=== PATIENT | male | born 1935 | race Caucasian/White ===

== ENCOUNTER 2018-03-16 09:19 | Emergency (ER) | payer OTHER, BC ==
[2018-03-16] MEDS ORDERED: FENTANYL CITR 100 MCG/2 ML ONE (09:55)
[2018-03-16] MEDS ORDERED: ONDANSETRON 4 MG/2 ML VIAL ONE (09:55)
[2018-03-16 10:11] LABS: Absolute Monocytes 3.3 K/uL (0.1-1.3); Absolute Neutrophil 7.8 K/uL (1.8-8.0); Basophils % 0.1 % (0-1.3); Eosinophils % 1.7 % (0-4.4); Lymphocytes % 8.3 % (15.3-44.8); RBC Red Blood Cell Count 5.28 M/uL (4.33-5.43)
[2018-03-16 10:17] LABS: Protime INR 2.42
[2018-03-16 10:27] LABS: Urine Amorphous Sediment 2+ /HPF (NONE SEEN); Urine Bacteria <20 /HPF (NONE SEEN); Urine Culture Reflex Order NOT NEEDED; Urine RBC <5 /HPF (NONE SEEN)
[2018-03-16 10:31] LABS: Albumin 3.9 g/dL (3.4-5.0); Bilirubin Direct 0.3 mg/dL (0-0.2); Bilirubin Total 0.8 mg/dL (0.2-1.0); Potassium 4.4 mmol/L (3.5-5.1); Protein, Total 7.6 g/dL (6.4-8.2)
[2018-03-16 10:49] LABS: Blood Morphology Comment NOT SEEN (NOT SEEN); Platelet Estimate DECR; Platelets, Giant FEW; Urine White Blood Cell Casts OK
--- NOTE | 2018-03-16 11:47 | RAD REPORT ---
EXAM DESCRIPTION: CTAbdomen Pelvis W Contrast - 03/16/2018 11:24 am CLINICAL HISTORY: Abdominal pain. back pain COMPARISON: No comparisons TECHNIQUE: Biphasic CT imaging of the abdomen and pelvis was performed with 100 ml non-ionic IV cont rast. All CT scans are performed using dose optimization technique as appropriate and may include automated exposure control or mA/KV adjustment according to patient size. FINDINGS: Emphysematous changes are present in the lung bases. The liver demonstrates no focal mass or intrahepatic biliary dilatation. The spleen is within normal limits. The pancreas shows a few small punctate calcifications. Small caliceal stones are present in both kidneys without obstructive uropathy. 3.6 cm right renal cyst is present. Heavy aortic atheroscl erosis is noted. No bowel obstruction, free air, free fluid or abscess. Sigmoid diverticulosis coli without diverticul itis. The appendix is normal. No evidence of significant lymphadenopathy. Moderate lumbar degenerative and postsurgical changes present. IMPRESSION: Bilateral renal calculi are present without hydronephrosis. Evidence of mild chronic pancreatitis. Prominent degenerative and postsurgical changes of the lumbar spine.
[2018-03-16 12:35] LABS: Urine Blood NEGATIVE (NEG); Urine Glucose NEGATIVE (NEG); Urine Protein TRACE (NEG); Urine pH 7.5 (5.0-7.0)
[2018-03-16] MEDS ORDERED: DIAZEPAM 10 MG/2 ML INJ SYRINGE ONE (12:58)
[2018-03-16] MEDS ORDERED: KETOROLAC 30 MG/ML INJ ONE (13:00)
--- NOTE | 2018-03-16 13:00 | ER ---
Nurse's Notes [facility] Name: Guzman Cooper Age: 82 yrs Sex: Male : 1935 Arrival Date: 03/16/2018 Time: 09:21 Bed 6 Private MD: Diagnosis: Low back pain-chronic Presentation: 03/16 09:21 Presenting complaint: EMS states: hx of chronic back problem, recently the pain is hj unbearable /10 with pain coming from the lumbar area down to the coccyx area; even slight movement pain is at its worse;. Transition of care: patient was not received from another setting of care. Onset of symptoms was March 16, 2018. Risk Assessment: Do you want to hurt yourself or someone else? Patient reports no desire to harm self or others. Initial Sepsis Screen: Does the patient meet any 2 criteria? No. Patient's initial sepsis screen is negative. Does the patient have a suspected source of infection? No. Patient's initial sepsis screen is negative. Care prior to arrival: BP- 163/82; HR- 60, with pacemaker;. 09:21 Method Of Arrival: EMS: [facility] 09:21 Acuity: ABRAN 4 hj Triage Assessment: 09:29 General: Appears in no apparent distress. uncomfortable, Behavior is calm, cooperative, hj appropriate for age. Pain: Complains of pain in sacrum, left low back and right low back Pain currently is 10 out of 10 on a pain scale. Musculoskeletal: Capillary refill < 3 seconds. Historical: - Allergies: 09:28 Codeine; hj 09:28 Sulfa (Sulfonamide Antibiotics); hj - Home Meds: 09:28 Toprol XL 150 mg Oral Tb24 1 tab once daily [Active]; Lotrel 5-40 mg Oral cap 1 cap hj once daily [Active]; Coumadin 3 mg Oral tab 1 tab once daily [Active]; Tricor 145 mg Oral tab 1 tab once daily [Active]; Januvia 100 mg oral tab 1 tab once daily [Active]; Xanax 0.25 mg Oral tab 1 tab 3 times per day [Active]; Flomax 0.4 mg Oral cp24 1 cap once daily [Active]; Synthroid 50 mcg Oral tab 1 tab once daily [Active]; Prozac 40 mg Oral cap 1 cap once daily [Active]; omeprazole 40 mg Oral cpDR 1 cap once daily [Active]; - PMHx: 09:28 Hyperlipidemia; Hypertension; Diabetes - NIDDM; Hypothyroidism; Atrial Fib; hj - PSHx: 09:28 pacemaker; hj - Immunization history:: Adult Immunizations up to date. - Social history:: Smoking status: Patient/guardian denies using tobacco, Patient/guardian denies using alcohol. - Ebola Screening: : Patient negative for fever greater than or equal to 101.5 degrees Fahrenheit, and additional compatible Ebola Virus Disease symptoms Patient denies exposure to infectious person Patient denies travel to an Ebola-affected area in the 21 days before illness onset. Screenin:29 Abuse screen: Denies threats or abuse. Denies injuries from another. Nutritional hj screening: No deficits noted. Tuberculosis screening: No symptoms or risk factors identified. Fall Risk Secondary diagnosis (15 points). Assessment: 09:48 Reassessment: see triage for assessment;. General:. hj 10:30 Reassessment: Patient and/or family updated on plan of care and expected duration. Pain hj level reassessed. Patient is alert, oriented x 3, equal unlabored respirations, skin warm/dry/pink. 11:30 Reassessment: Patient and/or family updated on plan of care and expected duration. Pain hj level reassessed. Patient is alert, oriented x 3, equal unlabored respirations, skin warm/dry/pink. 12:07 Reassessment: Patient and/or family updated on plan of care and expected duration. Pain hj level reassessed. Patient is alert, oriented x 3, equal unlabored respirations, skin warm/dry/pink. awaiting results and POC;. 12:44 Reassessment: Patient and/or family updated on plan of care and expected duration. Pain hj level reassessed. Patient is alert, oriented x 3, equal unlabored respirations, skin warm/dry/pink. provider in room for POC; daughter in room verifying info;. Vital Signs: 09:30 BP 151 / 84; Pulse 60; Resp 18; Temp 98.1(TE); Pulse Ox 96% on R/A; Weight 95.25 kg; hj Height 5 ft. 9 in. (175.26 cm); Pain 10/10; 10:30 BP 150 / 80; Pulse 60; Resp 18; Pulse Ox 97% on R/A; hj 11:30 BP 148 / 82; Pulse 60; Resp 18; Pulse Ox 98% on R/A; hj 12:08 BP 152 / 85; Pulse 59; Resp 18; Pulse Ox 97% on R/A; hj 13:24 BP 145 / 87; Pulse 60; Resp 18; Pulse Ox 99% on R/A; hj 09:30 Body Mass Index 31.01 (95.25 kg, 175.26 cm) hj ED Course: 09:21 Patient arrived in ED. hj 09:23 Triage completed. hj 09:28 Darin Tsai MD is Attending Physician. ps1 09:30 James Hartman PA is PHCP. cp 09:36 Cachorro Chen, JESSICA is Primary Nurse. hj 09:36 Arm band placed on right wrist. hj 09:36 Patient has correct armband on for positive identification. Bed in low position. Call hj light in reach. Side rails up X 1. Adult w/ patient. 10:07 Initial lab(s) drawn, by me, sent to lab. Inserted saline lock: 20 gauge in right jb1 antecubital area, using aseptic technique. Blood collected. 10:08 Bladder scan completed. 219 mls pre void. jb1 10:08 Bladder scan completed. 19mls post void. jb1 11:24 CT Abd/Pelvis - W/Contrast In Process Unspecified. EDMS 13:23 No provider procedures requiring assistance completed. IV discontinued, intact, hj bleeding controlled, No redness/swelling at site. Pressure dressing applied. Administered Medications: 09:45 Drug: fentaNYL (PF) 25 mcg Route: IVP; Site: right antecubital; hj 10:55 Follow up: Response: No adverse reaction; Pain is decreased hj 09:45 Drug: Zofran 4 mg Route: IVP; Site: right antecubital; hj 10:56 Follow up: Response: No adverse reaction hj 11:45 Drug: fentaNYL (PF) 25 mcg Route: IVP; Site: right antecubital; hj 12:10 Follow up: Response: No adverse reaction; Pain is decreased hj 12:46 Drug: Diazepam 2 mg Route: IVP; Site: right antecubital; hj 13:26 Follow up: Response: No adverse reaction hj 12:47 Drug: TORadol 30 mg Route: IVP; Site: right antecubital; hj 13:26 Follow up: Response: No adverse reaction; Pain is decreased almas Outcome: 12:59 Discharge ordered by . arlen 13:24 Discharged to home ambulatory, with family. hj 13:24 Condition: stable 13:24 Discharge instructions given to patient, family, Instructed on discharge instructions, follow up and referral plans. medication usage, Demonstrated understanding of instructions, follow-up care, medications, Prescriptions given X 2. 13:46 Patient left the ED. Signatures: Dispatcher [employer] EDDavid Adler jb1 Cachorro Chen RN RN James Peñaloza PA PA Darin Jones MD MD ps1
--- NOTE | 2018-03-16 13:00 | EDPHYS ---
Physician Documentation [facility] Name: Guzman Cooper Age: 82 yrs Sex: Male : 1935 Arrival Date: 03/16/2018 Time: 09:21 Bed 6 Private MD: ED Physician Darin Tsai HPI: 03/16 09:45 This 82 yrs old Male presents to ER via EMS with complaints of Back Pain. cp 09:45 The patient presents with pain that is chronic, with no known mechanism of injury. The cp symptoms are located in the low back. Onset: The symptoms/episode began/occurred chronically, became worse today. 09:45 The pain radiates to the right leg and left leg. Associated signs and symptoms: cp Pertinent negatives: abdominal pain, chest pain, constipation, dysuria, fever, hematuria, incontinence, numbness, urinary retention. Severity of symptoms: in the emergency department the symptoms are unchanged, despite home interventions. Historical: - Allergies: 09:28 Codeine; hj 09:28 Sulfa (Sulfonamide Antibiotics); hj - Home Meds: :28 Toprol XL 150 mg Oral Tb24 1 tab once daily [Active]; Lotrel 5-40 mg Oral cap 1 cap hj once daily [Active]; Coumadin 3 mg Oral tab 1 tab once daily [Active]; Tricor 145 mg Oral tab 1 tab once daily [Active]; Januvia 100 mg oral tab 1 tab once daily [Active]; Xanax 0.25 mg Oral tab 1 tab 3 times per day [Active]; Flomax 0.4 mg Oral cp24 1 cap once daily [Active]; Synthroid 50 mcg Oral tab 1 tab once daily [Active]; Prozac 40 mg Oral cap 1 cap once daily [Active]; omeprazole 40 mg Oral cpDR 1 cap once daily [Active]; - PMHx: :28 Hyperlipidemia; Hypertension; Diabetes - NIDDM; Hypothyroidism; Atrial Fib; hj - PSHx: 28 pacemaker; hj - Immunization history:: Adult Immunizations up to date. - Social history:: Smoking status: Patient/guardian denies using tobacco, Patient/guardian denies using alcohol. - Ebola Screening: : Patient negative for fever greater than or equal to 101.5 degrees Fahrenheit, and additional compatible Ebola Virus Disease symptoms Patient denies exposure to infectious person Patient denies travel to an Ebola-affected area in the 21 days before illness onset. ROS: 09:55 Constitutional: Negative for body aches, chills, fever, poor PO intake. cp 09:55 Eyes: Negative for injury, pain, redness, and discharge. cp 09:55 ENT: Negative for drainage from ear(s), ear pain, sore throat, difficulty swallowing, difficulty handling secretions. 09:55 Neck: Negative for pain with movement, pain at rest, stiffness, tenderness. 09:55 Cardiovascular: Negative for chest pain, edema, palpitations. 09:55 Respiratory: Negative for cough, shortness of breath, wheezing. 09:55 Abdomen/GI: Negative for abdominal pain, nausea, vomiting, and diarrhea, constipation, black/tarry stool, rectal bleeding, bowel incontinence. 09:55 Back: Positive for decreased range of motion, pain at rest, pain with movement, of the low back area and mid back area. 09:55 : Negative for urinary symptoms, difficulty urinating, bladder incontinence, testicular pain 09:55 MS/extremity: Negative for injury or acute deformity, decreased range of motion, paresthesias. 09:55 Skin: Negative for cellulitis, rash. 09:55 Neuro: Positive for weakness, of the right leg and left leg, Negative for altered mental status, headache, acute changes. 09:55 All other systems are negative. Exam: 10:05 Constitutional: The patient appears in no acute distress, alert, awake, cp non-diaphoretic, non-toxic, well developed, well nourished, uncomfortable. 10:05 Head/Face: Normocephalic, atraumatic. cp 10:05 Eyes: Periorbital structures: appear normal, Pupils: equal, round, and reactive to light and accomodation, Extraocular movements: intact throughout, Conjunctiva: normal, no exudate, no injection, Sclera: no appreciated abnormality, Lids and lashes: appear normal, bilaterally. 10:05 ENT: External ear(s): are unremarkable, Nose: is normal, Mouth: Lips: moist, Oral mucosa: pink and intact, moist, Posterior pharynx: is normal, airway is patent, no erythema, no exudate, Voice: is normal. 10:05 Neck: ROM/movement: is normal, is supple, without pain, no range of motions limitations, no meningismus, no nuchal rigidity. 10:05 Chest/axilla: Inspection: normal, Palpation: is normal, no crepitus, no tenderness. 10:05 Cardiovascular: Rate: normal, Rhythm: regular, Edema: mild lower legs, JVD: is not appreciated. 10:05 Respiratory: the patient does not display signs of respiratory distress, Respirations: normal, no use of accessory muscles, no retractions, no splinting, no tachypnea, labored breathing, is not present, Breath sounds: are clear throughout, no decreased breath sounds, no stridor, no wheezing. 10:05 Abdomen/GI: Inspection: abdomen appears normal, Bowel sounds: active, all quadrants, Palpation: abdomen is soft and non-tender, in all quadrants. 10:05 Back: pain, that is severe, of the low back area and mid back area, ROM is painful. 10:05 Musculoskeletal/extremity: Exam is negative for calf tenderness, decreased range of motion, deformity, injury. 10:05 Skin: cellulitis, is not appreciated, no rash present. 10:05 Neuro: Orientation: to person, place \T\ time. Mentation: is normal, Motor: moves all fours, negative for focal deficits, Sensation: is normal, Gait: needs assistance, uses a walker. Vital Signs: 09:30 BP 151 / 84; Pulse 60; Resp 18; Temp 98.1(TE); Pulse Ox 96% on R/A; Weight 95.25 kg; Height 5 ft. 9 in. (175.26 cm); Pain 10/10; 10:30 BP 150 / 80; Pulse 60; Resp 18; Pulse Ox 97% on R/A; hj 11:30 BP 148 / 82; Pulse 60; Resp 18; Pulse Ox 98% on R/A; 12:08 BP 152 / 85; Pulse 59; Resp 18; Pulse Ox 97% on R/A; 13:24 BP 145 / 87; Pulse 60; Resp 18; Pulse Ox 99% on R/A; 09:30 Body Mass Index 31.01 (95.25 kg, 175.26 cm) MDM: 09:32 Patient medically screened. cp 10:00 Differential diagnosis: Cholelithiasis chronic back pain, Osteomyelitis Pyelonephritis cp ruptured disc, Ureterolithiasis vertebral fracture. 12:57 Data reviewed: vital signs, nurses notes, lab test result(s), radiologic studies, CT cp scan. 12:57 Counseling: I had a detailed discussion with the patient and/or guardian regarding: the cp historical points, exam findings, and any diagnostic results supporting the discharge/admit diagnosis, lab results, radiology results, the need for outpatient follow up, for definitive care, a painting and coating worker, to return to the emergency department if symptoms worsen or persist or if there are any questions or concerns that arise at home. Response to treatment: the patient's symptoms have markedly improved after treatment, and as a result, I will discharge patient. 03/16 09:32 Order name: Basic Metabolic Panel cp 03/16 09:32 Order name: CBC with Diff; Complete Time: 11:50 cp 03/16 11:54 Interpretation: Normal except: WBC 12.4; PLT 94; RDW 17.4; MPV 12.0; LYM% 8.3; MN% cp 27.0; MNA 3.3. 03/16 09:32 Order name: Creatinine for Radiology; Complete Time: 10:42 cp 03/16 09:32 Order name: Hepatic Function; Complete Time: 10:42 cp 03/16 10:42 Interpretation: Normal except: BILID 0.3; GLOB 3.7. cp 03/16 09:32 Order name: Lipase; Complete Time: 10:42 cp 03/16 09:32 Order name: PT-INR; Complete Time: 10:42 cp 03/16 09:32 Order name: Ptt, Activated; Complete Time: 10:42 cp 03/16 09:32 Order name: Urine Microscopic Only; Complete Time: 10:42 cp 03/16 09:33 Order name: Basic Metabolic Panel; Complete Time: 10:42 EDMS 03/16 10:43 Interpretation: Normal except: NA 134; GLUC 120; BUN 21; GFR 68. cp 03/16 10:13 Order name: CBC Smear Scan; Complete Time: 11:50 EDMS 03/16 10:23 Order name: Urine Dipstick--Ancillary (enter results); Complete Time: 12:46 ag 03/16 10:44 Order name: CT Abd/Pelvis - W/Contrast; Complete Time: 11:50 cp 03/16 09:32 Order name: IV Saline Lock; Complete Time: 10:07 cp 03/16 09:32 Order name: Labs collected and sent; Complete Time: 10:07 03/16 09:32 Order name: Bladder Scanner: pre and post void; Complete Time: 10:07 03/16 09:32 Order name: Urine Dipstick-Ancillary (obtain specimen); Complete Time: 10:07 Administered Medications: 09:45 Drug: fentaNYL (PF) 25 mcg Route: IVP; Site: right antecubital; hj 10:55 Follow up: Response: No adverse reaction; Pain is decreased hj 09:45 Drug: Zofran 4 mg Route: IVP; Site: right antecubital; hj 10:56 Follow up: Response: No adverse reaction hj 11:45 Drug: fentaNYL (PF) 25 mcg Route: IVP; Site: right antecubital; hj 12:10 Follow up: Response: No adverse reaction; Pain is decreased hj 12:46 Drug: Diazepam 2 mg Route: IVP; Site: right antecubital; hj 13:26 Follow up: Response: No adverse reaction hj 12:47 Drug: TORadol 30 mg Route: IVP; Site: right antecubital; hj 13:26 Follow up: Response: No adverse reaction; Pain is decreased hj Disposition: 03/16/18 12:59 Discharged to Home. Impression: Low back pain - chronic. - Condition is Stable. - Discharge Instructions: Back Pain, Adult, Chronic Back Pain, Back Exercises, [id number]. - Prescriptions for Ultracet 37.5- 325 mg Oral Tablet - take 1 tablet by ORAL route every 6 hours - for up to 5 days; do not exceed 8 tablets per day.; 20 tablet. Baclofen 10 mg Oral Tablet - take 1 tablet by ORAL route 3 times per day; 20 tablet. docusate sodium 100 mg Oral capsule - take 1 capsule by ORAL route 2 times per day; 30 capsule. - Medication Reconciliation Form, Thank You Letter, Antibiotic Education, Prescription Opioid Use form. - Follow up: Private Physician; When: 2 - 3 days; Reason: Recheck today's complaints. - Problem is chronic. - Symptoms have improved. Addendum: 03/27/2018 15:30 Co-signature as Attending Physician, Darin Tsai MD Available for consultation at p s1 all times. . Signatures: Dispatcher [employer] EDCachorro Wells RN RN hj Page, Corey, PA PA cp Singer, Phillip, MD MD ps1 Corrections: (The following items were deleted from the chart) 03/16 11:54 10:43 Normal except: WBC 12.4; PLT 94; RDW 17.4; MPV 12.0; LYM% 8.3; MN% 27.0. cp cp 13:46 12:59 03/16/2018 12:59 Discharged to Home. Impression: Low back pain - chronic. hj Condition is Stable. Forms are Medication Reconciliation Form, Thank You Letter, Antibiotic Education, Prescription Opioid Use. Follow up: Private Physician; When: 2 - 3 days; Reason: Recheck today's complaints. Problem is chronic. Symptoms have improved. cp
== END 2018-03-16 13:46 | disposition home or self-care (01) ==
LOC: ER 09:19
DX: M54.5 Low back pain (principal); G89.29 Other chronic pain; N20.0 Calculus of kidney; E78.5 Hyperlipidemia, unspecified; E11.9 Type 2 diabetes mellitus without complications; E03.9 Hypothyroidism, unspecified; I10 Essential (primary) hypertension; I48.91 Unspecified atrial fibrillation; Z79.84 Long term (current) use of oral hypoglycemic drugs; Z79.899 Other long term (current) drug therapy
CPT/HCPCS: 36415; 74177; 80048; 80076; 83690; 85025; 85610; 85730; 96374; 96375; 99284; J2405; J3010; J3360; Q9967; 81003; 81015